=== PATIENT | male | born 1990 | race Caucasian/White ===

== ENCOUNTER 2017-09-28 13:37 | Emergency (ER) | payer OTHER ==
[~2017-09-28] VITALS: Ht 182.9 cm; Wt 79.4 kg
[2017-09-28 13:54] VITALS: BP 132/97
[2017-09-28] MEDS ORDERED: AUGMENTIN 875-1 EACH PO (14:35)
== END 2017-09-28 14:57 | disposition home or self-care (01) ==
LOC: M.ERS 13:37
DX: S61.452A Open bite of left hand, initial encounter (principal); S11.95XA Open bite of unspecified part of neck, initial encounter; F17.210 Nicotine dependence, cigarettes, uncomplicated; W54.0XXA Bitten by dog, initial encounter; Y93.89 Activity, other specified; Y92.89 Other specified places as the place of occurrence of the external cause; Y99.8 Other external cause status